=== PATIENT | female | born 1980 | race Caucasian/White ===

== ENCOUNTER 2016-08-01 00:04 | Observation (INO) | payer OTHER ==
[~2016-08-01 00:04] MED LIST: IBUPROFEN800 M1 PO; NO HOME MEDS; PRENATAL1 TAB; VITAMIN C100 M1
[2016-08-01] MEDS ORDERED: VITAMIN D5000 UNI1 PO (00:28)
[2016-08-01] MEDS ORDERED: VITAMIN C1000 M1 PO (00:29)
== END 2016-08-01 01:10 ==
LOC: LDR 00:04
PROVIDERS: ADMIT Advanced Practice Midwife
DX: O09.523 Supervision of elderly multigravida, third trimester (principal); Z3A.35 35 weeks gestation of pregnancy; Z79.899 Other long term (current) drug therapy; Z88.8 Allergy status to other drugs, medicaments and biological substances; Z87.891 Personal history of nicotine dependence; Z98.890 Other specified postprocedural states

== ENCOUNTER 2016-08-08 00:43 | Observation (INO) | payer OTHER ==
[~2016-08-08 00:43] MED LIST changes: +VITAMIN C1000 M1 PO; +VITAMIN D5000 UNI1 PO
== END 2016-08-08 01:50 ==
LOC: LDR 00:43
PROVIDERS: ADMIT Advanced Practice Midwife
DX: O30.003 Twin pregnancy, unspecified number of placenta and unspecified number of amniotic sacs, third trimester (principal); Z3A.35 35 weeks gestation of pregnancy; Z88.8 Allergy status to other drugs, medicaments and biological substances

== ENCOUNTER 2016-08-25 06:32 | Inpatient (IN) | payer OTHER, MEDICAID ==
[2016-08-25 08:27] LABS: BASO % 0.2 % (0-2); EOS % 2.5 % (0-7); EOSINOPHIL ABSOLUTE COUNT 0.2 tho/cmm (0.0-0.7); HCT-HEMATOCRIT 32.4 % (34.0-49.0); HGB-HEMOGLOBIN 10.9 gm/dl (12.0-15.5); IMMATURE GRANULOCYTES ABSOLUTE 0.06 tho/cmm (0-0.03); IMMATURE GRANULOCYTES PERCENT 0.7 % (0-0.3); LYMPH % 18.2 % (20-45); LYMPH ABSOLUTE COUNT 1.6 tho/cmm (0.8-4.5); MCH (MEAN CORPUSCULAR HGB) 31.6 pg (28.0-32.0); MCHC MEAN CORPUSCULAR HGB CONC 33.6 % (32.0-36.0); MCV (MEAN CELL VOLUME) 93.9 fl (82.0-96.0); MEAN PLATELET VOLUME 10.1 cmc (9.4-12.4); MONO % 8.3 % (0-12); MONOCYTE ABSOLUTE COUNT 0.7 tho/cmm (0.0-1.2); NEUTROPHIL ABSOLUTE COUNT 6.2 tho/cmm (1.6-8.0); NEUTROPHIL-AUTOMATED 6.2 tho/cmm (1.6-8.0); NEUTROPHILS % 70.1 % (40-80); PLATELET COUNT 268 tho/cmm (150-450); RED BLOOD COUNT 3.45 mil/cmm (4.00-5.20); RED CELL DISTRIBUTION WIDTH 13.3 % (12.4-16.4); WHITE BLOOD COUNT 8.8 tho/cmm (4.0-10.0)
[2016-08-26] MEDS ORDERED: IBUPROFEN800 M1 PO (00:54)
[2016-08-26] MEDS ORDERED: ULTRAM50 M1 PO (00:55)
[2016-08-26 07:03] LABS: BASO % 0.2 % (0-2); EOS % 3.3 % (0-7); EOSINOPHIL ABSOLUTE COUNT 0.3 tho/cmm (0.0-0.7); HCT-HEMATOCRIT 31.3 % (34.0-49.0); HGB-HEMOGLOBIN 10.7 gm/dl (12.0-15.5); IMMATURE GRANULOCYTES ABSOLUTE 0.06 tho/cmm (0-0.03); IMMATURE GRANULOCYTES PERCENT 0.7 % (0-0.3); LYMPH % 22.9 % (20-45); LYMPH ABSOLUTE COUNT 2.1 tho/cmm (0.8-4.5); MCH (MEAN CORPUSCULAR HGB) 31.9 pg (28.0-32.0); MCHC MEAN CORPUSCULAR HGB CONC 34.2 % (32.0-36.0); MCV (MEAN CELL VOLUME) 93.4 fl (82.0-96.0); MEAN PLATELET VOLUME 10.2 cmc (9.4-12.4); MONO % 9.5 % (0-12); MONOCYTE ABSOLUTE COUNT 0.9 tho/cmm (0.0-1.2); NEUTROPHIL ABSOLUTE COUNT 5.8 tho/cmm (1.6-8.0); NEUTROPHIL-AUTOMATED 5.8 tho/cmm (1.6-8.0); NEUTROPHILS % 63.4 % (40-80); PLATELET COUNT 248 tho/cmm (150-450); RED BLOOD COUNT 3.35 mil/cmm (4.00-5.20); WHITE BLOOD COUNT 9.2 tho/cmm (4.0-10.0)
--- NOTE | 2016-09-01 16:26 | NUR ---
CONSULT 08/26/16 @ 0855: DENIES NEEDS, REPORTS WELL, TANDEM FEEDING, INDEPENDENT.
== END 2016-08-27 11:00 | DRG 775 ==
LOC: LDR 06:32 → OBGF 21:12
PROVIDERS: ADMIT Advanced Practice Midwife
PROC: 10E0XZZ Delivery of Products of Conception, External Approach (ICD-10-PCS; principal; 2016-08-25)
PROC: 3E033VJ Introduction of Other Hormone into Peripheral Vein, Percutaneous Approach (ICD-10-PCS; 2016-08-25)
PROC: 10907ZC Drainage of Amniotic Fluid, Therapeutic from Products of Conception, Via Natural or Artificial Opening (ICD-10-PCS; 2016-08-25)
DX: O30.043 Twin pregnancy, dichorionic/diamniotic, third trimester (principal); Z37.2 Twins, both liveborn; Z3A.38 38 weeks gestation of pregnancy
CPT/HCPCS: J2210; J2590